=== PATIENT | female | born 2000 | race African-American/Black ===

== ENCOUNTER 2023-01-30 14:46 | Emergency (ER) | payer MEDICAID ==
[~2023-01-30] VITALS: Ht 157.5 cm; Wt 50.9 kg
[2023-01-30 14:49] VITALS: BP 118/76; RESP 15; O2SAT 99
[2023-01-30 14:51] VITALS: PULSE 65
[2023-01-30 15:17] LABS: Basophils # (auto) 0.1 10 ^3/uL (0-0.2); Basophils % (auto) 0.7 % (0.0-2.0); Eosinophils # (auto) 0 10 ^3/uL (0-0.8); Eosinophils % (auto) 0.4 % (0.0-7.0); Hematocrit 38.6 % (36.0-46.0); Hemoglobin 13.1 g/dL (12.2-16.2); Lymphocytes # (auto) 1.5 10 ^3/uL (0.4-5.4); Lymphocytes % (auto) 19.3 % (10.0-50.0); Mean Corpuscular Hemoglobin 29.9 pg (28.0-32.0); Mean Corpuscular Hgb Conc. 33.9 g/dL (32.0-36.0); Mean Corpuscular Volume 88.2 fL (80.0-100.0); Monocytes # (auto) 0.7 10 ^3/uL (0-1.3); Monocytes % (auto) 8.6 % (0.0-12.0); Neutrophils # (auto) 5.6 10 ^3/uL (1.6-8.6); Red Blood Cells 4.37 10^6/uL (4.0-5.20); Red Cell Distribution Width 13.4 % (11.8-14.3); White Blood Cell 7.9 10^3/uL (4.4-10.8)
[2023-01-30 15:32] LABS: INR 0.97 (0.9-1.15); Partial Thromboplastin Time 31.8 SEC (24.5-34.5); Prothrombin Time 10.2 sec (9.3-11.8)
[2023-01-30 15:36] LABS: Albumin 4.3 g/dL (3.2-4.8); Alkaline Phosphatase 58 U/L (46-116); Anion Gap 5.7 (5-15); Aspartate Aminotransferase 11 U/L (13-40); Bilirubin, Total 0.4 mg/dL (0.2-1.0); Carbon Dioxide 27.3 mmol/L (20-30); Chloride 104 mmol/L (98-107); Glucose 78 mg/dL (74-106); Magnesium 1.7 mg/dL (1.6-2.6); Potassium 3.4 mmol/L (3.5-5.1); Sodium 137 mmol/L (136-145); Total Protein 7.4 g/dL (5.7-8.2)
[2023-01-30 15:38] LABS: Alanine Aminotransferase < 9 U/L (7-40); BUN/Creatinine Ratio 8.9 (10.0-20.0); Blood Urea Nitrogen < 5 mg/dL (9-23)
== END 2023-01-30 15:58 | disposition left against medical advice (07) ==
LOC: ER 14:46
DX: R07.89 Other chest pain (principal); Z53.21 Procedure and treatment not carried out due to patient leaving prior to being seen by health care provider
CPT/HCPCS: 36415; 80053; 83735; 84484; 85025; 85610; 85730

== ENCOUNTER 2023-12-07 03:35 | Emergency (ER) | payer MEDICAID ==
[~2023-12-07] VITALS: Ht 154.9 cm; Wt 54.0 kg
[~2023-12-07 03:35] MED LIST: HYDR-4902 PO
[2023-12-07 04:20] LABS: Basophils # (auto) 0 10 ^3/uL (0-0.2); Basophils % (auto) 0.2 % (0.0-2.0); Eosinophils # (auto) 0.1 10 ^3/uL (0-0.8); Eosinophils % (auto) 0.5 % (0.0-7.0); Hemoglobin 13.9 g/dL (12.2-16.2); Lymphocytes # (auto) 2.4 10 ^3/uL (0.4-5.4); Lymphocytes % (auto) 16.5 % (10.0-50.0); Mean Corpuscular Hemoglobin 30.1 pg (28.0-32.0); Mean Corpuscular Hgb Conc. 33.2 g/dL (32.0-36.0); Mean Corpuscular Volume 90.8 fL (80.0-100.0); Monocytes % (auto) 6.7 % (0.0-12.0); Neutrophils # (auto) 10.9 10 ^3/uL (1.6-8.6); Neutrophils % (auto) 76.1 % (37.0-80.0); Nucleated Red Blood Cells % 0.1 %; Red Blood Cells 4.62 10^6/uL (4.0-5.20); Red Cell Distribution Width 13.2 % (11.8-14.3); White Blood Cell 14.3 10^3/uL (4.4-10.8)
[2023-12-07 04:35] LABS: Alanine Aminotransferase 13 U/L (7-40); Albumin 4.6 g/dL (3.2-4.8); Alkaline Phosphatase 45 U/L (46-116); Anion Gap 10 (5-15); Aspartate Aminotransferase 16 U/L (13-40); BUN/Creatinine Ratio 12.7 (10.0-20.0); Blood Urea Nitrogen 9 mg/dL (9-23); Calcium 10.1 mg/dL (8.7-10.4); Carbon Dioxide 22 mmol/L (20-30); Chloride 106 mmol/L (98-107); Glucose 147 mg/dL (74-106); Lipase 26 U/L (12-53); Potassium 3.3 mmol/L (3.5-5.1); Sodium 138 mmol/L (136-145)
[2023-12-07 04:36] LABS: Bilirubin, Total 0.9 mg/dL (0.2-1.0); Total Protein 7.7 g/dL (5.7-8.2)
[2023-12-07] MEDS: ONDANSETRON HCL 4 MG/2 ML VIAL IV ONE (04:42)
[2023-12-07] MEDS: SODIUM CHLORIDE 0.9% 1,000 ML IV ONE (04:45)
[2023-12-07] MEDS: LOPERAMIDE HCL 2 MG CAP/TAB PO ONE (04:48)
[2023-12-07] MEDS ORDERED: LOP2C PO (04:53)
[2023-12-07] MEDS ORDERED: ZOFR4T PO (04:53)
[2023-12-07] MEDS: POTASSIUM EFFERVESENT TAB 25 MEQ GT ONE (05:03)
[2023-12-07 05:51] VITALS: BP 145/78; PULSE 65; RESP 20; TEMP 98.2; O2SAT 96
== END 2023-12-07 05:50 | disposition home or self-care (01) ==
LOC: ER 03:39
DX: K52.9 Noninfective gastroenteritis and colitis, unspecified (principal); Z79.899 Other long term (current) drug therapy
CPT/HCPCS: 36415; 80053; 83690; 85025; 96361; 96374; 99283; J2405; J7030

== ENCOUNTER 2024-08-21 14:54 | Emergency (ER) | payer MEDICAID ==
[~2024-08-21] VITALS: Ht 152.4 cm; Wt 50.1 kg
[~2024-08-21 14:54] MED LIST changes: +LOPE2CAP16 PO; +ZOFR4T PO
[2024-08-21 15:22] VITALS: BP 107/75; PULSE 63; RESP 18; TEMP 97.6; O2SAT 100
[2024-08-21] MEDS: ACETAMINOPHEN/CODEINE#3 (300/30mg) TAB PO ONE (16:49)
[2024-08-21] MEDS ORDERED: ACE3T PO (17:04)
--- NOTE | 2024-08-21 17:05 | ED.PDOC ---
Eye-HPI HPI Comments 23-year-old presents for tooth pain located to the right upper quadrant. Patient was prescribed amoxicillin at [facility] clinic days ago but stopped taking the medication after she sustained a UTI and was prescribed Bactrim. Next appointment is October 31 also was referred for tooth extractions on October 31. Able to eat/drink. Denies f/c/n/v/d Chief Complaint: Tooth Pain Time Seen by MD: 15:39 Primary Care Provider: none Reviewed Notes: Nurses Notes, Medications, Allergies Allergies: Coded Allergies: NO KNOWN ALLERGIES (Unverified , 01/30/23) Home Meds Active Scripts Acetaminophen W/ Codeine (Tylenol W/Cod #3) 1 Tab Tb, 1 TAB PO Q6HP PRN for 5 Days, #20 TAB 0 Refills Prov:EZE JOHNSON FITTER WELDER 08/21/24 Loperamide Hcl (Imodium) 2 Mg Cp, 2 MG PO QID for 6 Days, #24 CAP Prov:OLENA DOLAN MD 12/07/23 Ondansetron Odt 4MG Tab (ZOFRAN PO) 4 Mg Tb, 4 MG PO TID for 5 Days, #15 TAB ODT TAB-DISSOLVE IN MOUTH, THEN SWALLOW Prov:OLENA DOLAN MD 12/07/23 Hydrocodone-Acetaminophen (Hydrocodone Bitartrate/AC 5-325 mg) 1 Tab Tab, 1 TAB PO BID PRN for 3 Days, #6 TAB Prov:SUZAN EDWARDS MD 08/08/23 Information Source: Patient Mode of Arrival: Ambulatory Past Medical History PAST MEDICAL HISTORY: Denies Surgical History: Denies all surgeries FRETTED INSTRUMENT REPAIRER History: Denies all FRETTED INSTRUMENT REPAIRER Hx Family History Family History: Reviewed,noncontributory to illness Social History Smoker: Non-Smoker Alcohol: Denies ETOH Use Drugs: Denies Drug Use Lives In: Home All Other Systems: Reviewed and Negative (per hpi) Physical Exam General Appearance: No Apparent Distress, Normal HEENT: Normal ENT Inspection, Pharynx Normal, TMs Normal, Other (Visible dental carries. MMM. ) Neck: Full Range of Motion, Non-Tender, Normal, Normal Inspection Respiratory: Chest Non-Tender, Lungs Clear, No Accessory Muscle Use, No Respiratory Distress, Normal Breath Sounds Cardiovascular: No Murmur, No Gallop, Regular Rate/Rhythm Breast Exam: Deferred Gastrointestinal: No Organomegaly, Non Tender, No Pulsatile Mass, Normal Bowel Sounds, Soft Genitalia: Deferred Pelvic: Deferred Rectal: Deferred Extremities: No calf tenderness, Normal capillary refill, Normal inspection, Normal range of motion, Non-tender, No pedal edema Musculoskeletal : Apperance: Normal Neurologic: Alert, No Motor Deficits, Normal Affect, Normal Mood, No Sensory Deficits Cerebellar Function: Normal Reflexes: Normal Skin: Dry, Normal Color, Warm Lymphatic: No Adenopathy Was a procedure done? Was a procedure done?: No EENT DIFF Eye: Other X-Ray, Labs, Meds, VS Vital Signs Date Time Temp Pulse Resp B/P (MAP) Pulse Ox O2 Delivery O2 Flow Rate FiO2 08/21/24 15:22 97.6 63 18 107/75 (86) 100 97.6 Current Medications Medications (Trade) Dose Ordered Sig/Everton Route Start Time Stop Time Status Last Admin Acetaminophen/ Codeine Phosphate (Tylenol W/Cod #3 Tablet) 1 tab ONCE ONCE PO 08/21/24 16:45 08/21/24 16:46 DC 08/21/24 16:49 X-Ray, Labs, Meds, VS Comment Patient not immunosuppressed. No evidence of tooth fracture, avulsion, or bleeding socket. No e/o retropharangeal abscess, peritonsillar abscess, Ludwigs angina, periapical abscess. No e/o gingival hyperplasia or concern for drug reaction. Checked the CURES website, no history of narcotic use within the past year. Will prescribe Leonardo p.o. for pain management. Education provided on possible side effects of medication including drowsiness, nausea, respiratory distress, etc. Do not drive, operate heavy machinery or make legal decisions while taking medication. Follow-up with your PMD within 24 to 48 hours. Disposition: Discharge home. Discussed return precautions for odontogenic infections and other dental pain emergencies. Will provide dental clinic list. Time of 1ST Reevaluation: 17:00 Reevaluation 1ST: Improved Patient Education/Counseling: Diagnosis, Treatment Family Education/Counseling: Diagnosis, Treatment Departure 1 Departure Time of Disposition: 17:02 Impression: Primary Impression: Tooth pain Disposition: 01 HOME / SELF CARE / HOMELESS Condition: Stable Additional Instructions: Discharge Note: Drink plenty of fluids. Follow up with your primary Dr. Take your prescriptions as ordered. If your condition becomes worse call and follow up with your primary DrSharmaine for instructions or return to the ER if needed. Thank you for visiting [facility]. e-Prescriptions Acetaminophen W/ Codeine (Tylenol W/Cod #3) 1 Tab Tb 1 TAB PO Q6HP PRN for 5 Days, #20 TAB 0 Refills Prov: EZE JOHNSON NP 08/21/24 Critical Care Note Critical Care Time?: No Stability Stability form required: No Heart Score Heart Score: Heart Score Response (Comments) Value History N/A 0 EKG N/A 0 Age N/A 0 Risk Factors N/A 0 Troponin N/A 0 Total 0 EZE JOHNSON NP Aug 21, 2024 17:04
== END 2024-08-21 17:17 | disposition home or self-care (01) ==
LOC: ER 14:54
DX: K08.89 Other specified disorders of teeth and supporting structures (principal)

== ENCOUNTER 2024-10-16 22:39 | Emergency (ER) | payer MEDICAID ==
[~2024-10-16] VITALS: Ht 154.9 cm; Wt 50.4 kg
[~2024-10-16 22:39] MED LIST changes: +ACE3T PO
[2024-10-16 23:40] VITALS: BP 117/71; PULSE 69; RESP 18; TEMP 98.1; O2SAT 95
[2024-10-16] MEDS ORDERED: CYCL-837 PO (23:47)
[2024-10-16] MEDS ORDERED: IBUP-1456 PO (23:47)
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
[2024-10-16] MEDS: KETOROLAC TROMETH 60MG/2ML VIAL IM ONE (23:54)
[2024-10-16] MEDS ORDERED: ACE3T PO (23:58)
[2024-10-17 00:48] LABS: Urine Bacteria FEW /hpf (None Seen); Urine Blood Negative /uL (Negative); Urine Clarity Clear (Clear); Urine Color Light-Yellow (Yellow); Urine Protein, UAD Negative (Negative); Urine Specific Gravity 1.017 (1.001-1.035); Urine Squamous Epithelial Cell FEW /hpf (<5); Urine Urobilinogen Normal (Negative); Urine WBC 2 /HPF (0-5)
== END 2024-10-16 23:57 | disposition home or self-care (01) ==
LOC: ER 22:39
DX: S39.012A Strain of muscle, fascia and tendon of lower back, initial encounter (principal); F17.290 Nicotine dependence, other tobacco product, uncomplicated; X58.XXXA Exposure to other specified factors, initial encounter; Y93.89 Activity, other specified; Y92.89 Other specified places as the place of occurrence of the external cause; Y99.8 Other external cause status
CPT/HCPCS: 81001; 96372; 99283; J1885

== ENCOUNTER 2024-12-09 14:33 | Emergency (ER) | payer MEDICAID ==
[~2024-12-09] VITALS: Ht 154.9 cm; Wt 46.7 kg
[~2024-12-09 14:33] MED LIST changes: +CYCL-837 PO
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
[2024-12-09] MEDS: HYDROcodone-ACET 5/325MG TAB PO ONE (16:23)
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
[2024-12-09] MEDS ORDERED: NAPR-746 PO (16:35)
[2024-12-09] MEDS ORDERED: AMOX500T86 PO (16:35)
[2024-12-09 16:47] VITALS: BP 113/73; TEMP 97.8
[2024-12-09 16:53] VITALS: PULSE 72; RESP 16; O2SAT 100
== END 2024-12-09 16:53 | disposition home or self-care (01) ==
LOC: ER 14:33
DX: S02.609A Fracture of mandible, unspecified, initial encounter for closed fracture (principal); S01.531A Puncture wound without foreign body of lip, initial encounter; G44.309 Post-traumatic headache, unspecified, not intractable; F17.200 Nicotine dependence, unspecified, uncomplicated; Y08.89XA Assault by other specified means, initial encounter; Y93.89 Activity, other specified; Y92.89 Other specified places as the place of occurrence of the external cause; Y99.8 Other external cause status
CPT/HCPCS: 70110

== ENCOUNTER 2025-02-26 11:41 | Emergency (ER) | payer MEDICAID ==
[~2025-02-26] VITALS: Ht 152.4 cm; Wt 46.3 kg
[~2025-02-26 11:41] MED LIST changes: +AMOX500T86 PO; +NAPR-746 PO
[2025-02-26 12:46] VITALS: TEMP 99
[2025-02-26] MEDS: KETOROLAC TROMETH 60MG/2ML VIAL IM ONE (12:55)
[2025-02-26] MEDS: AMOXICILLIN/CLAVUL 875 MG TAB PO ONE (12:55)
[2025-02-26 12:57] VITALS: BP 124/88; PULSE 63; RESP 18; O2SAT 98
--- NOTE | 2025-02-26 12:59 | ED.PDOC ---
History of Present Illness HPI Comments 24-year-old female presents to the ER with the chief complaint of chest pain. Patient reports on having had an appointment on January 03 for a wisdom tooth removal, but had to be postponed due from having a fracture jaw on December 09. Patient states during the incident causing the fracture jaw she did crack two tooth's which was the wisdom tooth in the one next to it. Patient does have slight left facial swelling. Patient is seeing her ENT specialist and they are unable to do any down to work due from a machine being broken. Patient notes on taking Tylenol at the moment. Denies chills, fever, N/V/D, SOB, CP. No other associated symptoms, modifiers, recent injuries or sick contacts present at this time. Chief Complaint: Tooth Pain Time Seen by MD: 13:00 Primary Care Provider: UNKNOWN Reviewed Notes: Nurses Notes, Medications, Allergies Allergies: Coded Allergies: NO KNOWN ALLERGIES (Unverified , 01/30/23) Home Meds Active Scripts Naproxen (Naproxen) 500 Mg Tab, 500 MG PO BID, #30 TAB Prov:CHARLEEN CABRERA 12/09/24 Amoxicillin & Pot Clavulanate (Augmentin) 500 Mg Tab, 1 TAB PO BID, #20 TAB Prov:CHARLEEN CABRERA 12/09/24 Acetaminophen W/ Codeine (Tylenol W/Cod #3) 1 Tab Tb, 1 TAB PO Q6HPRN, #10 TAB 0 Refills Prov:HANSA NASH 10/16/24 Cyclobenzaprine Hcl (Cyclobenzaprine Hcl) 5 Mg Tab, 1 TAB PO QHSP PRN, #14 TAB 0 Refills Prov:HANSA NASH 10/16/24 Acetaminophen W/ Codeine (Tylenol W/Cod #3) 1 Tab Tb, 1 TAB PO Q6HP PRN for 5 Days, #20 TAB 0 Refills Prov:EZE JOHNSON NP 08/21/24 Loperamide Hcl (Imodium) 2 Mg Cp, 2 MG PO QID for 6 Days, #24 CAP Prov:OLENA DOLAN MD 12/07/23 Ondansetron Odt 4MG Tab (ZOFRAN PO) 4 Mg Tb, 4 MG PO TID for 5 Days, #15 TAB ODT TAB-DISSOLVE IN MOUTH, THEN SWALLOW Prov:OLENA DOLAN MD 12/07/23 Hydrocodone-Acetaminophen (Hydrocodone Bitartrate/AC 5-325 mg) 1 Tab Tab, 1 TAB PO BID PRN for 3 Days, #6 TAB Prov:SUZAN EDWARDS MD 08/08/23 Information Source: Patient Mode of Arrival: Ambulatory Severity: Moderate Timing: Weeks Duration: Since onset Prehospital treatment: None Past Medical History PAST MEDICAL HISTORY: Denies Surgical History: Denies all surgeries CLAIMS ASSOCIATE History: Denies all CLAIMS ASSOCIATE Hx Family History Family History: Reviewed,noncontributory to illness, Unknown Social History Smoker: Other Alcohol: Denies ETOH Use Drugs: Denies Drug Use Lives In: Home Constitutional: denies: chills, diaphoresis, fatigue, fever, malaise, sweats, weakness, others EENTM: reports: others (Tooth pain/jaw pain); denies: blurred vision, double vision, ear bleeding, ear discharge, ear drainage, ear pain, ear ringing, eye pain, eye redness, hearing loss, mouth pain, mouth swelling, nasal discharge, nose bleeding, nose congestion, nose pain, photophobia, tearing, throat pain, throat swelling, voice changes Respiratory: denies: cough, hemoptysis, orthopnea, SOB at rest, shortness of breath, SOB with excertion, stridor, wheezing, others Cardiovascular: denies: chest pain, dizzy spells, diaphoresis, Dyspnea on exertion, edema, irregular heart beat, left arm pain, lightheadedness, palpitations, PND, syncope, others Gastrointestinal: denies: abdomen distended, abdominal pain, blood streaked bowels, constipated, diarrhea, dysphagia, difficulty swallowing, hematemesis, melena, nausea, poor appetite, poor fluid intake, rectal bleeding, rectal pain, vomiting, others Genitourinary: denies: abnormal vagina bleeding, burning, dyspareunia, dysuria, flank pain, frequency, hematuria, incontinence, pain, , vagina di scharge, urgency, others Neurological: denies: dizziness, fainting, headache, left sided numbness, left sided weakness, numbness, paresthesia, pre-existing deficit, right sided numbness, right sided weakness, seizure, speech problems, tingling, tremors, weakness, others Musculoskeletal: denies: back pain, gout, joint pain, joint swelling, muscle pain, muscle stiffness, neck pain, others Integumetry: denies: bruises, change in color, change in hair/nails, dryness, laceration, lesions, lumps, rash, wounds, others Allergic/Immunocompromised: denies: Difficulty Healing, Frequent Infections, Hives, Itching, others Hematologic/Lymphatic: denies: anemia, blood clots, easy bleeding, easy bruising, swollen glands, others Endocrine: denies: excessive hunger, excessive sweating, excessive thirst, excessive urination, flushing, intolerance to cold, intolerance to heat, unexplained weight gain, unexplained weight loss, others Psychiatric: denies: anxiety, bipolar disorder, depression, hopeless, panic disorder, schizophrenia, sleepless, suicidal, others All Other Systems: Reviewed and Negative Physical Exam General Appearance: No Apparent Distress, Normal HEENT: Normal ENT Inspection, Pharynx Normal, TMs Normal Neck: Full Range of Motion, Non-Tender, Normal, Normal Inspection Respiratory: Chest Non-Tender, Lungs Clear, No Accessory Muscle Use, No Respiratory Distress, Normal Breath Sounds Cardiovascular: No Edema, No JVD, No Murmur, No Gallop, Normal Peripheral Pulses, Regular Rate/Rhythm Breast Exam: Deferred Gastrointestinal: No Organomegaly, Non Tender, No Pulsatile Mass, Normal Bowel Sounds, Soft Genitalia: Deferred Pelvic: Deferred Rectal: Deferred Extremities: No calf tenderness, Normal capillary refill, Normal inspection, N ormal range of motion, Non-tender, No pedal edema Musculoskeletal : Apperance: Normal Neurologic: Alert, director museum or zoo II-XII nml as Tested, No Motor Deficits, Normal Affect, Normal Mood, No Sensory Deficits Cerebellar Function: Normal Reflexes: Normal Skin: Dry, Normal Color, Warm Lymphatic: No Adenopathy Was a procedure done? Was a procedure done?: No Differential Dx Considerations may include: Dental infection X-Ray, Labs, Meds, VS Vital Signs Date Time Temp Pulse Resp B/P (MAP) Pulse Ox O2 Delivery O2 Flow Rate FiO2 02/26/25 12:57 63 18 124/88 (100) 100 02/26/25 12:57 63 18 98 Room Air 02/26/25 12:46 99.0 78 20 130/88 99 99.0 Current Medications Medications (Trade) Dose Ordered Sig/Ever[place] Route Start Time Stop Time Status Last Admin Amoxicillin/ Clavulanate Potassium (Augmentin Tablet) 875 mg ONCE ONCE PO 02/26/25 12:30 02/26/25 12:31 DC 02/26/25 12:55 Ketorolac Tromethamine (Toradol Injection) 15 mg ONCE ONCE IM 02/26/25 12:30 02/26/25 12:31 DC 02/26/25 12:55 Time of 1ST Reevaluation: 13:30 Reevaluation 1ST: Unchanged Patient Education/Counseling: Diagnosis, Treatment, Prognosis Family Education/Counseling: No Family Present SEPSIS Sepsis Screen Date sepsis recognized/suspect: Feb 26, 2025 Time Sepsis recognized/suspect: 1246 Recent Procedure: No On Antibiotic Therapy: No Respiratory Rate >20: No Heart Rate >90: No Temp<36 C (96.8 F) or >38.3 C: No SBP <90 or MAP <65 mmHG: No New Acute Mental Status Change: No Is the patient on CPAP, BIPAP,: No Vital Signs Date Time Temp Pulse Resp B/P (MAP) Pulse Ox O2 Delivery O2 Flow Rate FiO2 02/26/25 12:57 63 18 124/88 (100) 100 02/26/25 12:57 63 18 98 Room Air 02/26/25 12:46 99.0 78 20 130/88 99 99.0 Medications Medications Dose Ordered Sig/Ever[place] Route Start Time Stop Time Status Last Admin Dose Admin Amoxicillin/ Clavulanate Potassium 875 mg ONCE ONCE PO 02/26/25 12:30 02/26/25 12:31 DC 02/26/25 12:55 Ketorolac Tromethamine 15 mg ONCE ONCE IM 02/26/25 12:30 02/26/25 12:31 DC 02/26/25 12:55 Departure 1 Departure Time of Disposition: 13:51 (Patient likely with dental infection. We will cover patient with the medication the patient will follow up with a dentist later this week) Impression: Primary Impression: Dental infection Disposition: HOME / SELF CARE / HOMELESS Condition: Stable Additional Instructions: You have a dental infection. You were prescribed antibiotics and pain medication. Please take as directed. It is important that you follow up with a dentist this week. For pain you can take the followinam: Ibuprofen 400mg with food Noon: Acetaminophen 1000mg 4pm: Ibuprofen 400mg with food 8pm: Acetaminophen 1000mg If your symptoms worsen or you have any other concerns then please return to the ER. e-Prescriptions Benzocaine (Dental) (ORAL ANALGESIC MAXIMUM ST) 20 % Gel 20 % MT BID PRN for 7 Days, #1 GEL Prov: PO WILKERSON MD 02/26/25 Amoxicillin & Pot Clavulanate (AUGMENTIN TABLET) 875 Mg Tb 875 MG PO BID for 7 Days, #14 TAB Prov: PO WILKERSON MD 02/26/25 Discharged With: Self Critical Care Note Critical Care Time?: No Stability Stability form required: No I personally scribed for PO WILKERSON MD ([email or web address]) on 02/26/25 at 12:59. Electronically submitted by Mike Wall ([email or web address]). PO WILKERSON MD Feb 26, 2025 12:59
[2025-02-26] MEDS ORDERED: BENZ20GE13 MT (13:53)
[2025-02-26] MEDS ORDERED: AUG875T PO (13:53)
== END 2025-02-26 15:21 | disposition home or self-care (01) ==
LOC: ER 11:44
DX: K04.7 Periapical abscess without sinus (principal); F17.200 Nicotine dependence, unspecified, uncomplicated; Z79.899 Other long term (current) drug therapy
CPT/HCPCS: 96372; 99283; J1885